=== PATIENT | male | born 1995 | race Hispanic/Latino ===

== ENCOUNTER 2019-08-12 00:20 | Emergency (ER) | payer SELFPAY ==
[2019-08-12] MEDS ORDERED: Lorazepam 2 MG/ML VIAL ONE (00:41)
[2019-08-12 01:10] LABS: Bilirubin Negative (Negative); Blood, Urine Trace (Negative); Clarity Clear (Clear); Glucose, Urine (Dipstick) Negative (Negative); Leukocyte Negative (Negative); Nitrite Negative (Negative); Protein, Urine (Dipstick) Negative (Neg-Trace); Urobilinogen 0.2 mg/dL (Less than 2)
[2019-08-12 01:12] LABS: #Basophils 0.1 thou/uL (0.0-0.2); #Lymphocytes 2.7 thou/uL (1.20-3.40); #Monocytes 1.3 thou/uL (0.11-0.59); #Neutrophils 7.4 thou/uL (1.40-6.50); %Basophils 0.7 % (0.0-1.0); %Eosinophils 0.3 % (0.0-10.0); %Lymphocytes 23.5 % (21.0-51.0); %Monocytes 11.2 % (0.0-10.0); %Neutrophils 64.4 % (42.0-75.0); Hemoglobin 15.3 g/dL (14.0-18.0); Mean Corpuscular HGB CONC 30.9 g/dL (32.0-36.0); Mean Corpuscular Hemoglobin 29.2 pg (27.0-31.0); Mean Corpuscular Volume 94.5 fL (78.0-98.0); Mean Platelet Volume 7.7 fL (7.4-10.4); Platelet Count 264 thou/uL (130-400); RBC Distribution Width 12.5 % (11.5-14.5); Red Blood Cell (RBC) Count 5.24 mill/uL (4.70-6.10); White Blood Cell (WBC) Count 11.4 thou/uL (4.8-10.8)
[2019-08-12 01:35] LABS: Amphetamine Detected (NotDetected); Barbiturates Screen Not Detected (NotDetected); Benzodiazepine Screen Not Detected (NotDetected); Cocaine Metabolite Screen Not Detected (NotDetected); Medtox Control Line Valid? VALID (VALID); Methadone Not Detected (NotDetected); Methamphetamine Not Detected (NotDetected); Opiate Screen Not Detected (NotDetected); Oxycodone Screen Not Detected (NotDetected); Phencyclidine (PCP) Not Detected (NotDetected); THC/Cannabinoid Screen Not Detected (NotDetected); Tricyclic Screen Not Detected (NotDetected)
[2019-08-12 01:41] LABS: RBC/HPF 0-3 HPF (0-3); Squamous Epithelial 0-3 HPF (0-3); WBC/HPF 0-3 HPF (0-3)
[2019-08-12 01:42] LABS: Bacteria/HPF None Seen HPF (None Seen)
[2019-08-12 01:59] LABS: ALT (SGPT) 27 U/L (8-55); AST (SGOT) 21 U/L (5-34); Acetaminophen Less than 6.0 mcg/mL (10.0-30.0); Albumin 5.2 g/dL (3.5-5.0); Alcohol Less than 10 mg/dL (Less than 10); Alkaline Phosphatase 70 U/L (40-110); Anion Gap 16 mmol/L (10-20); BUN (Urea Nitrogen) 10 mg/dL (8.9-20.6); Bilirubin, Total 0.7 mg/dL (0.2-1.2); CK (CPK) 323 U/L (30-200); Calc. Creatinine Clearance 0 mL/min (70-130); Carbon Dioxide 25 mmol/L (22-29); Chloride 100 mmol/L (98-107); Estimated GFR-MDRD Greater than 90; Globulin 2.9 g/dL (2.4-3.5); Glucose 107 mg/dL (70-105); Potassium 3.6 mmol/L (3.5-5.1); Protein, Total 8.1 g/dL (6.0-8.3); Salicylate Less than 8.0 mg/dL (15.0-30.0); Sodium 137 mmol/L (136-145)
== END 2019-08-12 04:57 | disposition home or self-care (01) ==
LOC: MADERS 00:20
DX: F41.9 Anxiety disorder, unspecified (principal); F15.10 Other stimulant abuse, uncomplicated
CPT/HCPCS: 36415; 80053; 80306; 80307; 81003; 81015; 82550; 84443; 85025; 96372; 99284; J2060

== ENCOUNTER 2019-08-13 18:29 | Emergency (ER) | payer SELFPAY ==
[2019-08-13 18:59] LABS: #Basophils 0.1 thou/uL (0.0-0.2); #Lymphocytes 2.1 thou/uL (1.20-3.40); #Monocytes 1.3 thou/uL (0.11-0.59); #Neutrophils 7.9 thou/uL (1.40-6.50); %Basophils 0.9 % (0.0-1.0); %Eosinophils 0.3 % (0.0-10.0); %Lymphocytes 18.6 % (21.0-51.0); %Neutrophils 69.2 % (42.0-75.0); Hemoglobin 15.1 g/dL (14.0-18.0); Mean Corpuscular HGB CONC 31.9 g/dL (32.0-36.0); Mean Corpuscular Hemoglobin 29.9 pg (27.0-31.0); Mean Corpuscular Volume 93.9 fL (78.0-98.0); Mean Platelet Volume 8.5 fL (7.4-10.4); Platelet Count 255 thou/uL (130-400); RBC Distribution Width 12.3 % (11.5-14.5); Red Blood Cell (RBC) Count 5.03 mill/uL (4.70-6.10); White Blood Cell (WBC) Count 11.5 thou/uL (4.8-10.8)
[2019-08-13 19:13] LABS: ALT (SGPT) 28 U/L (8-55); AST (SGOT) 25 U/L (5-34); Albumin 5.2 g/dL (3.5-5.0); Alkaline Phosphatase 67 U/L (40-110); Anion Gap 19 mmol/L (10-20); BUN (Urea Nitrogen) 15 mg/dL (8.9-20.6); Bilirubin, Total 1.1 mg/dL (0.2-1.2); Calc. Creatinine Clearance 0 mL/min (70-130); Carbon Dioxide 23 mmol/L (22-29); Chloride 103 mmol/L (98-107); Estimated GFR-MDRD Greater than 90; Globulin 2.7 g/dL (2.4-3.5); Glucose 95 mg/dL (70-105); Potassium 3.9 mmol/L (3.5-5.1); Protein, Total 7.9 g/dL (6.0-8.3); Sodium 141 mmol/L (136-145)
--- NOTE | 2019-08-13 19:13 | RAD ---
XR Chest 1 View Portable History: Chest pain Comparison: None. Findings: Lungs are clear. No pneumothorax or effusion. Cardiac silhouette and mediastinal contours a re within normal limits. No acute osseous abnormality. Impression: No acute intrathoracic abnormality.
== END 2019-08-13 18:58 | disposition home or self-care (01) ==
LOC: MADERS 18:29
DX: M94.0 Chondrocostal junction syndrome [Tietze] (principal); F41.9 Anxiety disorder, unspecified
CPT/HCPCS: 71045; 80053; 84484; 85025; 93005; 94760

== ENCOUNTER 2020-10-01 09:06 | Outpatient (CLI) | payer SELFPAY | END 2020-10-01 09:07 | disposition home or self-care (01) | LOC: MADLAB 09:06 | PROVIDERS: ATTEND Family Medicine | DX: M25.552 Pain in left hip (principal); G89.29 Other chronic pain; W13.2XXA Fall from, out of or through roof, initial encounter ==

== ENCOUNTER 2023-02-09 16:41 | Emergency (ER) | payer SELFPAY ==
[2023-02-09] MEDS ORDERED: Lidocaine 1% (PF) 30 ML VIAL ONE (16:54)
[2023-02-09] MEDS ORDERED: Bacitracin 1 PK ONE (16:55)
[2023-02-09] MEDS ORDERED: Boostrix 0.5 ML (Tdap) VIAL (>/=7 yrs of age) ONE (16:55)
== END 2023-02-09 18:40 | disposition home or self-care (01) ==
LOC: MADERS 16:41
DX: S61.111A Laceration without foreign body of right thumb with damage to nail, initial encounter (principal); W27.0XXA Contact with workbench tool, initial encounter
CPT/HCPCS: 12002; 90715; J2001

== ENCOUNTER 2023-02-21 13:12 | Emergency (ER) | payer SELFPAY | END 2023-02-21 13:57 | disposition home or self-care (01) | LOC: MADERS 13:12 | DX: S61.011D Laceration without foreign body of right thumb without damage to nail, subsequent encounter (principal); X58.XXXD Exposure to other specified factors, subsequent encounter ==